=== PATIENT | female | born 2000 | race Caucasian/White ===

== ENCOUNTER 2019-08-27 11:14 | Emergency (ER) | payer MEDICAID ==
[~2019-08-27] VITALS: Ht 154.9 cm; Wt 60.3 kg
[2019-08-27 11:52] VITALS: BP 111/82
--- NOTE | 2019-08-27 12:14 | NUR ---
Patient given discharge instructions and they have confirmed that they understand the instructions. Patient ambulatory with steady gait.
== END 2019-08-27 12:16 | disposition home or self-care (01) ==
LOC: ED 12:10
DX: J01.90 Acute sinusitis, unspecified (principal)
CPT/HCPCS: 99283